=== PATIENT | female | born 1970 | race Caucasian/White ===

== ENCOUNTER 2024-05-19 14:30 | Outpatient (RCR) | payer OTHER, SELFPAY | END 2024-07-03 15:39 | disposition home or self-care (01) | PROVIDERS: PCP Physician Assistant Medical; Visit Provider Physician Assistant Medical | DX: M75.40 Impingement syndrome of unspecified shoulder (principal); M25.511 Pain in right shoulder; M25.512 Pain in left shoulder; Z51.89 Encounter for other specified aftercare | CPT/HCPCS: 97110; 97112; 97140; 97161 ==